=== PATIENT | female | born 1955 | race Asian ===

== ENCOUNTER → 2024-08-19 06:42 | Outpatient (REF) | payer OTHER, SELFPAY ==
[2024-08-19] MEDS: LEXISCAN 0.4 MG IV (08:57)
== END ==
LOC: RCS 06:42
PROVIDERS: ATTENDING PHYSICIAN Internal Medicine Cardiovascular Disease; FAMILY PHYSICIAN Internal Medicine
DX: Z01.810 Encounter for preprocedural cardiovascular examination (principal); R06.09 Other forms of dyspnea; I10 Essential (primary) hypertension; E78.5 Hyperlipidemia, unspecified; R94.31 Abnormal electrocardiogram [ECG] [EKG]
CPT/HCPCS: 78452; 93017; A9500; J2785

== ENCOUNTER → 2025-03-16 11:07 | Outpatient (REF) | payer OTHER, SELFPAY | LOC: MRI 11:07 | PROVIDERS: ATTENDING PHYSICIAN Orthopaedic Surgery; FAMILY PHYSICIAN Specialist | DX: M25.511 Pain in right shoulder (principal) | CPT/HCPCS: 73221 ==